=== PATIENT | male | born 1960 | race Hispanic/Latino ===

== ENCOUNTER 2018-05-31 18:55 | Inpatient (IN) | payer MEDICARE, OTHER ==
[~2018-05-31] VITALS: Ht 177.8 cm; Wt 99.1 kg
[2018-05-31 19:40] LABS: BASOPHILS % (AUTO) 0.6 % (0.0-5.0); EOSINOPHILS % (AUTO) 0.8 % (0.0-8.0); HEMATOCRIT 45.5 % (42-54); LYMPHOCYTES % (AUTO) 12.7 % (21.0-51.0); MEAN CORPUSCULAR HEMOGLOBIN 29.5 pg (27.0-33.0); MEAN CORPUSCULAR HGB CONC 34.1 g/dL (32.0-36.0); MEAN CORPUSCULAR VOLUME 86.5 fL (79-99); MONOCYTES % (AUTO) 5.8 % (3.0-13.0); NEUTROPHILS % (AUTO) 80.1 % (40.0-77.0); PLATELET COUNT (AUTO) 210 K/uL (130-400); RED BLOOD CELL COUNT(AUTO) 5.26 MIL/uL (4.50-6.20); RED CELL DISTRIBUTION WIDTH 13.4 % (11.0-15.5); WHITE BLOOD COUNT (AUTO) 12.8 K/uL (4.8-10.8)
[2018-05-31 19:58] LABS: APPEARANCE,URINE Cloudy (CLEAR); BILIRUBIN,URINE Small (NEGATIVE); COLOR,URINE Dark Yellow (YELLOW); GLUCOSE, URINE (UA) Negative (NEGATIVE); KETONES,URINE Trace mg/dL (NEGATIVE); LEUKOCYTE ESTERASE ,URINE Trace (NEGATIVE); NITRATE,URINE Negative (NEGATIVE); OCCULT BLOOD,URINE Negative (NEGATIVE); PROTEIN,URINE POS 1+ (NEGATIVE)
[2018-05-31 19:59] LABS: CREATININE 1.2 mg/dL (0.5-1.5); POTASSIUM 3.7 mmol/L (3.5-5.1)
[2018-05-31 20:02] LABS: INR 1.02 (0.85-1.15); PARTIAL THROMBOPLASTIN TIME 23.5 SEC (26.3-35.5); PROTHROMBIN TIME 10.7 SEC (9.6-11.6)
[2018-05-31 20:03] LABS: ALBUMIN 4.9 g/dL (3.5-5.0); BILIRUBIN,TOTAL 0.6 mg/dL (0.2-1.0); TOTAL PROTEIN, SERUM 8.6 g/dL (6.0-8.3)
[2018-05-31 20:08] LABS: BACTERIA,URINE Rare /HPF (None Seen); MUCUS,URINE Many LPF (None Seen); RBC,URINE None Seen /HPF (0-1); SQUAMOUS EPITHELIAL CELL,UR 0-2 /HPF (0-2); WBC,URINE 0-1 /HPF (0-1)
[2018-05-31] MEDS ORDERED: ONDANSETRON HCL 4 MG/2 ML VIAL ONE (20:46)
[2018-05-31] MEDS ORDERED: KETOROLAC TROMETHAMINE 30MG/ML ONE (20:46)
[2018-05-31] MEDS ORDERED: ONDANSETRON HCL MDV 20ML 2 MG/ML VIAL IVP PRN (21:30)
[2018-05-31] MEDS ORDERED: KETOROLAC TROMETHAMINE 30MG/ML IV PRN (21:30)
[2018-05-31 21:40] VITALS: BP 122/81
[2018-05-31] MEDS ORDERED: ACETAMINOPHEN 325 MG TAB PO PRN (22:30)
[2018-05-31 23:51] VITALS: BP 116/70
[2018-06-01] MEDS ORDERED: GABA-531 PO (01:22)
[2018-06-01] MEDS ORDERED: ASPI-1197 PO (01:23)
[2018-06-01] MEDS ORDERED: LOVA40TA2 PO (01:24)
[2018-06-01] MEDS ORDERED: LEVO50 PO (01:25)
[2018-06-01] MEDS ORDERED: PANT40TA25 PO (01:26)
[2018-06-01] MEDS: SODIUM CHLORIDE 0.9% 1000ML 1,000 ML IV SCH ×4 (01:33→20:59)
[2018-06-01 04:00] VITALS: BP 106/62
[2018-06-01 05:51] LABS: BASOPHILS % (AUTO) 0.5 % (0.0-5.0); HEMATOCRIT 41.6 % (42-54); LYMPHOCYTES % (AUTO) 26.2 % (21.0-51.0); MEAN CORPUSCULAR HGB CONC 33.5 g/dL (32.0-36.0); MEAN CORPUSCULAR VOLUME 86.5 fL (79-99); MONOCYTES % (AUTO) 8.2 % (3.0-13.0); NEUTROPHILS % (AUTO) 64.1 % (40.0-77.0); NUCLEATED RED BLOOD CELLS 0.1 % (0.0-0.19); PLATELET COUNT (AUTO) 168 K/uL (130-400); RED BLOOD CELL COUNT(AUTO) 4.81 MIL/uL (4.50-6.20); RED CELL DISTRIBUTION WIDTH 13.5 % (11.0-15.5); WHITE BLOOD COUNT (AUTO) 9.9 K/uL (4.8-10.8)
[2018-06-01 06:06] LABS: ALBUMIN 3.7 g/dL (3.5-5.0); BILIRUBIN,TOTAL 0.7 mg/dL (0.2-1.0); POTASSIUM 4.1 mmol/L (3.5-5.1); TOTAL PROTEIN, SERUM 6.8 g/dL (6.0-8.3)
[2018-06-01 07:30] VITALS: BP 108/67
[2018-06-01] MEDS: FAMOTIDINE/PF 20 MG/2 ML VIAL IV SCH ×2 (08:28→20:58)
[2018-06-01] MEDS: LEVOFLOXACIN 500 MG/D5W 100 ML 100 ML IV SCH (08:29)
[2018-06-01] MEDS: ENOXAPARIN SODIUM 40 MG/0.4 ML SYRINGE SQ SCH ×2 (08:30→08:36)
[2018-06-01 11:00] VITALS: BP 111/71
[2018-06-01] MEDS ORDERED: MORPHINE SULFATE 2 MG/ML 1ML SYG IVP PRN (11:45)
[2018-06-01] MEDS: METRONIDAZOLE 500MG/100ML BAG 100 ML IV SCH ×2 (14:30→22:33)
[2018-06-01 15:30] VITALS: BP 111/67
[2018-06-01 20:00] VITALS: BP 119/69
[2018-06-02] VITALS: BP 120/68
[2018-06-02 04:00] VITALS: BP 117/71
[2018-06-02] MEDS: METRONIDAZOLE 500MG/100ML BAG 100 ML IV SCH ×3 (05:53→23:42)
[2018-06-02 06:11] LABS: EOSINOPHILS % (AUTO) 2.1 % (0.0-8.0); MEAN CORPUSCULAR HEMOGLOBIN 29.7 pg (27.0-33.0); MEAN CORPUSCULAR HGB CONC 34.3 g/dL (32.0-36.0); MEAN CORPUSCULAR VOLUME 86.6 fL (79-99); MONOCYTES % (AUTO) 8.3 % (3.0-13.0); NEUTROPHILS % (AUTO) 58.6 % (40.0-77.0); PLATELET COUNT (AUTO) 139 K/uL (130-400); RED BLOOD CELL COUNT(AUTO) 4.27 MIL/uL (4.50-6.20); RED CELL DISTRIBUTION WIDTH 13.1 % (11.0-15.5); WHITE BLOOD COUNT (AUTO) 5.1 K/uL (4.8-10.8)
[2018-06-02 06:18] LABS: CREATININE 1.1 mg/dL (0.5-1.5); POTASSIUM 4.1 mmol/L (3.5-5.1)
[2018-06-02] MEDS: LEVOFLOXACIN 500 MG/D5W 100 ML 100 ML IV SCH (07:24)
[2018-06-02 07:30] VITALS: BP 119/74
[2018-06-02] MEDS: ENOXAPARIN SODIUM 40 MG/0.4 ML SYRINGE SQ SCH (08:03)
[2018-06-02] MEDS: FAMOTIDINE/PF 20 MG/2 ML VIAL IV SCH ×2 (08:03→20:18)
[2018-06-02] MEDS: SODIUM CHLORIDE 0.9% 1000ML 1,000 ML IV SCH (09:30)
[2018-06-02] MEDS: DOCUSATE SODIUM 100 MG CAP PO SCH (10:44)
[2018-06-02 11:00] VITALS: BP 135/60
[2018-06-02 15:30] VITALS: BP 118/73
[2018-06-02 20:00] VITALS: BP 129/79
[2018-06-03] VITALS: BP 124/69
[2018-06-03 04:00] VITALS: BP 116/64
[2018-06-03] MEDS: METRONIDAZOLE 500MG/100ML BAG 100 ML IV SCH (06:15)
[2018-06-03] MEDS: LEVOFLOXACIN 500 MG/D5W 100 ML 100 ML IV SCH (07:37)
[2018-06-03 08:00] VITALS: BP 128/74
[2018-06-03] MEDS: ENOXAPARIN SODIUM 40 MG/0.4 ML SYRINGE SQ SCH (09:00)
[2018-06-03] MEDS: DOCUSATE SODIUM 100 MG CAP PO SCH (10:06)
[2018-06-03] MEDS: FAMOTIDINE/PF 20 MG/2 ML VIAL IV SCH (10:06)
== END 2018-06-03 11:10 | disposition home or self-care (01) | DRG 392 ==
LOC: EDH 18:55 → EDHIP 21:03 → 3DH 21:28
PROVIDERS: ADMIT Internal Medicine; ATTEND Internal Medicine
DX: K52.9 Noninfective gastroenteritis and colitis, unspecified (principal); K56.699 Other intestinal obstruction unspecified as to partial versus complete obstruction; T45.1X5A Adverse effect of antineoplastic and immunosuppressive drugs, initial encounter; N28.9 Disorder of kidney and ureter, unspecified; E78.5 Hyperlipidemia, unspecified; E03.9 Hypothyroidism, unspecified; E78.00 Pure hypercholesterolemia, unspecified; I10 Essential (primary) hypertension; K29.50 Unspecified chronic gastritis without bleeding; K76.0 Fatty (change of) liver, not elsewhere classified; G62.2 Polyneuropathy due to other toxic agents; Y92.89 Other specified places as the place of occurrence of the external cause; Z92.3 Personal history of irradiation; Z92.21 Personal history of antineoplastic chemotherapy; Z90.49 Acquired absence of other specified parts of digestive tract; Z85.048 Personal history of other malignant neoplasm of rectum, rectosigmoid junction, and anus
CPT/HCPCS: 36415; 74176; 80048; 80053; 81001; 82550; 82948; 84484; 85025; 85610; 85730; 87040; 87046; 87088; 87205; 93005; J1650; J1885; J1956; J2405; J3490